=== PATIENT | male | born 1995 | race Caucasian/White ===

== ENCOUNTER 2017-09-30 10:57 | Emergency (ER) | payer BC ==
[~2017-09-30] VITALS: Ht 180.3 cm; Wt 66.0 kg
[~2017-09-30 10:57] MED LIST: DOXY1TAB PO
[2017-09-30 11:05] VITALS: TEMP 37; Ht 180.3 cm; Wt 66.0 kg
--- NOTE | 2017-09-30 11:31 | EMERGENCY ROOM VISIT NOTE ---
History First contact with patient: 11:14 Chief Complaint: FEVER Stated Complaint: FEVER, DIZZINESS, FATIGUE,WEAKNESS History of Present Illness The patient is a 22 year old male who presents to the Emergency Room with complaints of fever and sore throat. The patient reports that he was diagnosed with influenza and treated with Tamiflu while on winter break a few weeks ago. He has had a lingering cough. He states that yesterday, he developed sore throat and fever. He was seen at [facility] and had negative testing for mono and strep. He was diagnosed with tonsillitis and prescribed penicillin, which he has been taking as prescribed. He rates his overall discomfort a 3/10. He states that he had a fever of 103F this morning. He reports that he was told by the provider at the urgent care center to come here if he does not feel better or has a fever today. He took Tylenol this morning. He reports associated fatigue, body aches and swollen glands in his neck. He denies any headache or neck pain/stiffness. He denies any nausea/vomiting, changes in bowel movements, shortness of breath or difficulty swallowing. Review of Systems A complete 10 point review of systems was reviewed with the patient with pertinent positives and negatives as per history of present illness. All else were negative. Past Medical/Surgical History Medical Problems: (1) Scoliosis (2) Testicular torsion Family History Patient reports no known family medical history. Social History Smoking Status: Never Smoker Alcohol Use: occasionally Drug Use: none Marital Status: single Housing Status: lives with roommate Occupation Status: [employer] student Current/Historical Medications Scheduled Penicillin V Potassium (Veetids), 500 MG PO TID Physical Exam Vital Signs Date Time Temp Pulse Resp B/P (MAP) Pulse Ox O2 Delivery O2 Flow Rate FiO2 09/30/17 12:13 89 20 125/74 100 09/30/17 11:05 37.0 92 18 129/66 99 Physical Exam VITALS: Vitals are noted on the nurse's note and reviewed by myself. Vital signs stable. GENERAL: This is a 22-year-old male, in no acute distress, nondiaphoretic, well- developed well-nourished. SKIN: The skin was without rashes. EARS: External auditory canals clear, tympanic membranes pearly de oliveira without erythema or effusion bilaterally. EYES: Pupils equal round and reactive to light and accommodation. MOUTH: Mucous membranes moist. Tonsils are enlarged bilaterally with a small amount of exudate present on both tonsils. NECK: Supple without nuchal rigidity. Mild left anterior cervical lymphadenopathy. HEART: Regular rate and rhythm without murmurs gallops or rubs. LUNGS: Clear to auscultation bilaterally without wheezes, rales or rhonchi. NEURO: Patient was alert and oriented to person place and time. Medical Decision & Procedures Medical Decision Differential diagnosis includes strep pharyngitis, infectious mononucleosis, viral illness, influenza, among others. The patient was evaluated as above. He is well-appearing on exam and has no fever on presentation to the ER. He does appear to have a tonsillitis and is being treated appropriately for this. The patient was instructed to alternate Tylenol and ibuprofen as needed for pain/fevers. He was instructed to follow- up with [facility] services as needed and return here for any worsening or new/concerning symptoms. He verbalized understanding of my assessment and treatment plan and was discharged home in good condition. Medication Reconcilliation Current Medication List: was personally reviewed by me Blood Pressure Screening Patient's blood pressure: Normal blood pressure Impression Primary Impression: Tonsillitis Departure Information Dispostion Home / Self-Care Condition GOOD Referrals [facility] (PCP) Patient Instructions My [facility] Additional Instructions Continue the penicillin as prescribed. For fever control, you can use the following [id number] medicines (if >12 yo): -Extra strength (500mg/tab) Tylenol (acetaminophen) 2 tabs every 6 hours as needed. Avoid taking more than 4 grams (4000 mg) of Tylenol per day. This includes any other sources of acetaminophen you may take on a regular basis. - Regular strength (200 mg/tab) Advil (ibuprofen) 3-4 tabs every 6 hours as needed. Do not exceed a dose of 3200 mg per day. You may alternate these medications for better fever control. Rest and drink plenty of fluids. Follow-up with your primary care provider as needed. Return to the emergency department with difficulty swallowing/breathing, worsening pain or any other new/concerning symptoms.
[2017-09-30] MEDS ORDERED: PENI-82 PO (11:34)
[2017-09-30 12:13] VITALS: BP 125/74; PULSE 89; O2SAT 100
== END 2017-09-30 12:14 | disposition home or self-care (01) ==
LOC: C.EDB 10:59
DX: J03.90 Acute tonsillitis, unspecified (principal); M41.9 Scoliosis, unspecified

== ENCOUNTER 2017-10-05 13:59 | Emergency (ER) | payer BC ==
[~2017-10-05] VITALS: Ht 182.9 cm; Wt 65.0 kg
[~2017-10-05 13:59] MED LIST changes: -DOXY1TAB PO; +PENI-82 PO
[2017-10-05 14:06] VITALS: TEMP 36.9; Ht 182.9 cm; Wt 65.0 kg
[2017-10-05] MEDS ORDERED: DEXAMETHASONE SOD INJ 4 MG/ML 5 ML VIAL IM STA (14:23)
[2017-10-05] MEDS ORDERED: DEXAMETHASONE **PF** INJ 10 MG/ML VIAL IM SCH (14:23)
[2017-10-05] MEDS ORDERED: FAMOTIDINE 20 MG TAB PO ONE (14:30)
[2017-10-05] MEDS ORDERED: DEXAMETHASONE **PF** INJ 10 MG/ML VIAL ONE (14:33)
[2017-10-05] MEDS ORDERED: PRED20TA PO (16:47)
[2017-10-05 16:50] VITALS: BP 111/66; PULSE 85; O2SAT 96
[2017-10-05] MEDS ORDERED: EPP3/2 IM (16:57)
--- NOTE | 2017-10-05 17:07 | EMERGENCY ROOM VISIT NOTE ---
History Report prepared by Jennifer: Linwood Cavanaugh Under the Supervision of: Dr. Pk Onofre M.D. First contact with patient: 14:10 Chief Complaint: ALLERGIC REACTION Stated Complaint: ALLERGIC REACTION Nursing Triage Summary: pt to the ED with c/o allergic reaction to chick peas and sesame and gave epi at 15 mins took benedryl 50mg and another half of another pill reaction started at 1240 with chest pain and scratchy throat redness to face with nausea pt speaking full sent at triage History of Present Illness The patient is a 22 year old male who presents to the Emergency Room with complaints of an improving generalized allergic reaction beginning 1.5 hours ago (1250). He was eating lunch when he suddenly began experiencing his symptoms. He states that he was eating food containing chick peas and possibly sesame seeds, both of which he has known allergies to. The patient's symptoms include chest tightness, nausea, throat "scratchiness", diffuse hives, and face feeling "hot". He denies any vomiting. He states that he took two 25 mg doses of Benadryl for his symptoms, but felt that it was not helping so he used his EpiPen 30 minutes [employer]. The patient feels that his EpiPen has improved his symptoms. He is currently on penicillin for strep throat. He is unsure if discussion this is a stroke was from his strep throat or his allergy. He denies any history of penicillin allergy. Source of History: patient Onset: 1.5 hours ago Position: other (generalized) Quality: other (allergic reaction) Timing: other (improving) Modifying Factors (Relieving): other (EpiPen) Associated Symptoms: + chest pain ("tightness"), + nausea, No vomiting Note: The patient's symptoms include throat "scratchiness", diffuse hives, and face feeling "hot". Review of Systems See HPI for pertinent positives & negatives. A total of 10 systems reviewed and were otherwise negative. Past Medical & Surgical Medical Problems: (1) Scoliosis (2) Testicular torsion Family History Patient reports no known family medical history. Social History Smoking Status: Never Smoker Alcohol Use: occasionally Drug Use: none Marital Status: single Housing Status: lives with roommate Occupation Status: [employer] student Current/Historical Medications Scheduled Epinephrine (Epipen), 0.3 MG IM UD Penicillin V Potassium (Veetids), 500 MG PO TID Prednisone (Prednisone), 3 TAB PO DAILY Allergies Coded Allergies: Lentils (Verified Allergy, Mild, HIVES, 10/05/17) Egg (Unverified Allergy, Unknown, UNKNOWN, 10/05/17) CANT EAT RAW EGG Uncoded Allergies: LEGUMES (Allergy, Mild, HIVES, 10/31/15) PEANUTS (Allergy, Mild, HIVES, 06/02/15) PEAS (Allergy, Mild, HIVES, 06/02/15) SESAME SEEDS (Allergy, Mild, HIVES, 06/02/15) TREE NUTS (Allergy, Mild, HIVES, 06/02/15) Physical Exam Vital Signs Date Time Temp Pulse Resp B/P (MAP) Pulse Ox O2 Delivery O2 Flow Rate FiO2 10/05/17 16:00 84 20 117/65 96 Room Air 10/05/17 14:06 36.9 83 18 152/69 97 Physical Exam Constitutional: Vital signs reviewed. Eyes: Pupils are equal round reactive to light. Conjunctiva are noninjected. ENT: Mucous membranes are moist. Bilateral tonsillar enlargement with mild erythema. Neck supple without meningeal signs. Respiratory: Clear to auscultation bilaterally. Breath sounds are equal bilaterally. No stridor or wheezing. Cardiovascular: Regular rate and rhythm. No rubs or gallops. GI: Soft, nondistended and nontender. Bowel sounds are present. Musculoskeletal: No peripheral edema. Integumentary: No cyanosis. Flushing to his face. Erythema to the arms. Puncture wound to the right thigh. Neurological: The patient is awake and alert. No focal deficits. Psychiatric: Normal affect. Medical Decision & Procedures Medications Administered Medications (Trade) Dose Ordered Sig/Robina Route Start Time Stop Time Status Last Admin Dose Admin Famotidine (Pepcid Tab) 20 mg NOW ONCE PO 10/05/17 14:30 10/05/17 14:35 DC 10/05/17 14:38 20 MG Dexamethasone Sodium Phosphate (Dexamethasone Inj Pf) 10 mg TODAY@1423 IM 10/05/17 14:23 10/05/17 14:45 DC 10/05/17 14:38 10 MG ED Course 1415: The patient was evaluated in room C10. A complete history and physical exam was performed. 1423: Ordered Dexamethasone Inj 10 mg IM. 1430: Ordered Pepcid Tab 20 mg PO. 1605: I reassessed the patient. He feels much better, and his rash is gone. 1648: Upon reevaluation, the patient appeared to have improvement of his symptoms. I discussed irma's findings with him. He verbalized agreement of the treatment plan. The patient was discharged home. Medical Decision This is a 22-year-old male who presents with an acute allergic reaction. I did perform a limited focused review of portions of the patient's old chart on the electronic medical record. The patient was seen in the ED five days ago for tonsillitis. I did evaluate the patient as noted above. The patient is presenting with an acute allergic reaction. He ate something containing chickpeas which she is allergic to. He did use his EpiPen prior to arrival. He is feeling better at this time. He has no stridor or difficulty breathing. He has no swelling to his tongue or uvula. I did treat him with Decadron 10 mg IM as well as Pepcid orally. We did observe him here for several hours to make sure that he did not have rebound from the epinephrine. He had significant improvement of his symptoms with resolution of his rash. He was discharged with a prescription for prednisone and a few EpiPen. He was discharged in good condition. He was advised follow with his doctor. Medication Reconcilliation Current Medication List: was personally reviewed by me Blood Pressure Screening Patient's blood pressure: Elevated blood pressure Blood pressure disposition: Elevated BP felt to be situational Impression Primary Impression: Acute allergic reaction Scribe Attestation The scribe's documentation has been prepared under my direct and personally reviewed by me in its entirety. I confirm that the note above accurately reflects all work, treatment, procedures, and medical decision making performed by me. Departure Information Dispostion Home / Self-Care Prescriptions Epinephrine (EPIPEN) 0.3 Mg/0.3 Ml Inj 0.3 MG IM UD, #1 BOX Prov: Pk Onofre M.D. 10/05/17 Prednisone (Prednisone) 20 Mg Tab 3 TAB PO DAILY, #12 TAB FOR 4 DAYS Prov: Pk Onofre M.D. 10/05/17 Referrals [facility] (PCP) Forms HOME CARE DOCUMENTATION FORM, IMPORTANT VISIT INFORMATION Patient Instructions ED Allergic Reaction General Other, My [facility] Additional Instructions You have been examined and treated today on an emergency basis only. This is not a substitute for, or an effort to provide, complete comprehensive medical care. It is impossible to recognize and treat all injuries or illnesses in a single emergency department visit. It is therefore important that you follow up closely with your physician. Call as soon as possible for an appointment. Return for worsening symptoms or if you develop difficulty breathing, swelling to your tongue or throat, or any other concerning symptoms. Problem Qualifiers Primary Impression: Acute allergic reaction Encounter type: initial encounter Qualified Codes: T78.40XA - Allergy, unspecified, initial encounter
== END 2017-10-05 16:50 | disposition home or self-care (01) ==
LOC: C.EDB 14:00 → C.EDC 16:50
DX: T78.40XA Allergy, unspecified, initial encounter (principal); X58.XXXA Exposure to other specified factors, initial encounter; M41.9 Scoliosis, unspecified